=== PATIENT | female | born 1970 | race African-American/Black ===

== ENCOUNTER 2024-12-26 15:44 | Emergency (ER) | payer MEDICAID ==
[~2024-12-26] VITALS: Ht 162.6 cm; Wt 58.9 kg
[2024-12-26 16:00] VITALS: O2SAT 99
[2024-12-26 16:03] VITALS: BP 150/86; PULSE 62; RESP 16; TEMP 37.1; O2SAT 99
[2024-12-26] MEDS ORDERED: AMOX1TAB16 MT (16:33)
[2024-12-26] MEDS: TETANUS, DIPHTHERIA, PERTUSSIS VAC/PF 0.5ML (>10YR OLD) IM ONE (16:42)
[2024-12-26 16:48] LABS: GLUCOSE URINE NEGATIVE (NEGATIVE); KETONES URINE NEGATIVE (NEGATIVE); LEUKOCYTE ESTERASE URINE 3+ (NEGATIVE); NITRITE URINE NEGATIVE (NEGATIVE); OCCULT BLOOD URINE 1+ (NEGATIVE); PROTEIN URINE NEGATIVE (NEGATIVE); SPECIFIC GRAVITY URINE 1.007 (1.005-1.030); UROBILINOGEN URINE 0.2 E.U./dL (0.2-1.0)
[2024-12-26 17:07] LABS: COLOR URINE PALE YELLOW (YELLOW)
[2024-12-26 17:08] LABS: CLARITY URINE HAZY (CLEAR)
[2024-12-26 17:09] LABS: WBC URINE 50-100 /hpf (0-2)
[2024-12-26 17:10] LABS: BACTERIA URINE TRACE; RBC URINE NONE SEEN /hpf (0-2); RENAL EPITHELIAL CELLS URINE Rare /lpf; SQUAMOUS EPITHELIAL CELL URINE NONE SEEN /lpf (RARE/1+)
== END 2024-12-26 16:44 | disposition home or self-care (01) ==
LOC: ER 15:44
DX: S60.410A Abrasion of right index finger, initial encounter (principal); N39.0 Urinary tract infection, site not specified; I10 Essential (primary) hypertension; Z98.890 Other specified postprocedural states; W54.0XXA Bitten by dog, initial encounter; Y93.89 Activity, other specified; Y92.89 Other specified places as the place of occurrence of the external cause; Y99.8 Other external cause status
CPT/HCPCS: 81003; 87077; 87186; 90471; 90715; 99283

== ENCOUNTER 2025-07-23 19:30 | Emergency (ER) | payer MEDICAID ==
[~2025-07-23] VITALS: Ht 162.6 cm; Wt 59.1 kg
[~2025-07-23 19:30] MED LIST: AMOX1TAB16 MT
[2025-07-23 19:55] VITALS: O2SAT 97
[2025-07-23] MEDS: METOCLOPRAMIDE HCL 10MG TABLET PO ONE (21:37)
[2025-07-23] MEDS: ACETAMINOPHEN 500MG TABLET PO ONE (21:37)
[2025-07-23] MEDS: TETANUS, DIPHTHERIA, PERTUSSIS VAC/PF 0.5ML (>10YR OLD) IM ONE (21:42)
[2025-07-23] MEDS ORDERED: LIDO-53 TP (23:27)
[2025-07-23] MEDS ORDERED: CYCL5TAB3 MT (23:27)
[2025-07-23] MEDS ORDERED: NAPR-1176 MT (23:27)
[2025-07-23] MEDS: KETOROLAC 15MG/ML VIAL IM ONE (23:51)
[2025-07-23] MEDS: LIDOCAINE HCL 1% 20ML VIAL INFIL ONE (23:53)
[2025-07-23 23:57] VITALS: BP 138/85; PULSE 70; RESP 18; TEMP 36.8; O2SAT 97
== END 2025-07-24 | disposition home or self-care (01) ==
LOC: ER 19:30
DX: S00.93XA Contusion of unspecified part of head, initial encounter (principal); M25.561 Pain in right knee; I10 Essential (primary) hypertension; Z98.890 Other specified postprocedural states; Z79.899 Other long term (current) drug therapy; W19.XXXA Unspecified fall, initial encounter; Y93.89 Activity, other specified; Y92.89 Other specified places as the place of occurrence of the external cause; Y99.8 Other external cause status
CPT/HCPCS: 99285; 70450; 73562; 70486; 72125; 12013; 96372; J1885; J8597; J2003; A6449 ×2

== ENCOUNTER 2025-07-30 12:57 | Emergency (ER) | payer MEDICAID ==
[~2025-07-30] VITALS: Ht 165.1 cm; Wt 60.0 kg
[~2025-07-30 12:57] MED LIST changes: +CYCL5TAB3 MT; +LIDO-53 TP; +NAPR-1176 MT
[2025-07-30 13:15] VITALS: BP 154/88; TEMP 36.7; O2SAT 95
[2025-07-30 13:18] VITALS: PULSE 82; RESP 15; O2SAT 99
== END 2025-07-30 13:54 | disposition home or self-care (01) ==
LOC: ER 12:57
DX: S01.411D Laceration without foreign body of right cheek and temporomandibular area, subsequent encounter (principal); I10 Essential (primary) hypertension; X58.XXXD Exposure to other specified factors, subsequent encounter
CPT/HCPCS: 99282; Z7610